=== PATIENT | female | born 1965 | race Caucasian/White ===

== ENCOUNTER 2021-08-16 18:53 | Emergency (ER) | payer MEDICARE ==
--- NOTE | 2021-08-16 19:19 | EDM.PDOC ---
ED HPI GENERAL MEDICAL PROBLEM - General Chief Complaint: General Stated Complaint: FELL INJURING FACE/LEFT SIDE Time Seen by Provider: 08/16/21 19:12 - History of Present Illness INITIAL COMMENTS - FREE TEXT/NARRATIVE: 56-year-old female presents the emergency room for evaluation after a fall that she sustained this morning. Patient got her feet tangled up on the edge of a rug and fell forward hitting her left forehead and face on the ground. She also landed hard on her left wrist and hand. She is not sure how she did it but she has a bruise behind her right arm she has some superficial lacerations associated with this. She denies any loss of consciousness just has not felt right all day today. Patient has myotonic dystrophy. She has had brain surgery in the past. Her only medications are multivitamin and she uses hydrocodone for the pain Left Wrist Pain Score (Numeric/FACES): 6 - Related Data Allergies Allergy/AdvReac Type Severity Reaction Status Date / Time codeine Allergy Nausea and Verified 08/16/21 19:11 Vomiting Home Meds: Home Meds Aspirin [Aspirin EC] 81 mg PO DAILY 08/16/21 [History] Hydrocodone/Acetaminophen [HYDROcodone-Acetaminophen 5-325 MG] 5 mg PO ASDIRECTED PRN 08/16/21 [History] ED ROS GENERAL - Review of Systems Review Of Systems: See Below Constitutional: Reports: No Symptoms HEENT: Reports: No Symptoms, Vision Change (She has chronic lower field vision deficits) Respiratory: Reports: No Symptoms Cardiovascular: Reports: No Symptoms Endocrine: Reports: No Symptoms GI/Abdominal: Reports: No Symptoms : Reports: No Symptoms Musculoskeletal: Reports: No Symptoms Skin: Reports: No Symptoms ED EXAM, GENERAL - Physical Exam Exam: See Below Exam Limited By: No Limitations General Appearance: Alert, No Apparent Distress Eye Exam: Bilateral Eye: Normal Inspection, PERRL Ears: Normal External Exam Ear Exam: Bilateral Ear: Auricle Normal, Canal Normal, TM normal Nose: Normal Inspection, Normal Mucosa, No Blood Throat/Mouth: Normal Inspection, Normal Lips, Normal Oropharynx, Normal Voice, No Airway Compromise Head: Other (Skin bruising and swelling over left forehead and over left eyebrow) Neck: Normal Inspection, Supple, Non-Tender, Full Range of Motion. No: Lymphadenopathy (R), Thyromegaly Respiratory/Chest: No Respiratory Distress, Lungs Clear, Normal Breath Sounds Cardiovascular: Normal Peripheral Pulses, Regular Rate, Rhythm, No Edema GI/Abdominal: Normal Bowel Sounds, Non-Tender, Pelvis Stable Back Exam: Normal Inspection. No: CVA Tenderness (L), CVA Tenderness (R) Extremities: Normal Inspection, Other (Some palpable hand discomfort no specific snuffbox tenderness on the left side). No: Pedal Edema Neurological: Alert, Oriented, CN II-XII Intact, Normal Cognition Skin Exam: Other (Bruising and abrasion over the left eyebrow) Course - Vital Signs Last Recorded V/S: Last Vital Signs Temp 36.8 C 08/16/21 19:09 Pulse 95 08/16/21 19:09 Resp 18 08/16/21 19:09 BP 156/110 H 08/16/21 19:09 Pulse Ox 87 L 08/16/21 19:09 - Orders/Labs/Meds Orders: Active Orders 24 hr Category Date Time Status Vaccine to be Administered/Admin Charge [RC] ASDIRECTED Care 08/16/21 19:35 Active Hand Comp Min 3V Lt [CR] Stat Exams 08/16/21 19:32 Taken Head wo Cont [CT] Stat Exams 08/16/21 19:32 Taken Max Facial Sinus wo Cont [CT] Stat Exams 08/16/21 19:32 Taken Meds: Medications Discontinued Medications Generic Name Dose Route Start Last Admin Trade Name Rudolphq PRN Reason Stop Dose Admin Diphtheria/Tetanus/Acell Pertussis 0.5 ml 08/16/21 19:35 08/16/21 20:04 Diphtheria,Pertussis(Acell),Tetanus Vaccine 0.5 Ml Syringe IM 08/16/21 19:36 0.5 ml .ONCE ONE Administration - Re-Assessments/Exams Free Text/Narrative Re-Assessment/Exam: 08/16/21 20:36 CT of the head and facial bones appears negative for any acute fracture dislocation. I did look at the left hand x-ray no evidence of any fracture dislocation she is got some mild degenerative changes noted. Relayed the information about the x-rays and CTs to the patient she would like to go home now. Departure - Departure Time of Disposition: 20:37 Disposition: Home, Self-Care 01 Clinical Impression: Injury of left facial nerve, Injury of left hand - Discharge Information Referrals: Mara Hook MD [Primary Care Provider] - Forms: ED Department Discharge Additional Instructions: Return to the emergency room with any questions problems or worsening symptoms. Tylenol as needed for discomfort. You may also use your hydrocodone. Follow-up with your regular healthcare provider in 1 week if needed. Sepsis Event Note (ED) - Evaluation Sepsis Screening Result: No Definite Risk - Focused Exam Vital Signs: Vital Signs Temp Pulse Resp BP Pulse Ox 08/16/21 19:09 36.8 C 95 18 156/110 H 87 L - My Orders Last 24 Hours: My Active Orders 08/16/21 19:32 Hand Comp Min 3V Lt [CR] Stat Head wo Cont [CT] Stat Max Facial Sinus wo Cont [CT] Stat 08/16/21 19:35 Vaccine to be Administered/Admin Charge [RC] ASDIRECTED - Assessment/Plan Last 24 Hours: My Active Orders 08/16/21 19:32 Hand Comp Min 3V Lt [CR] Stat Head wo Cont [CT] Stat Max Facial Sinus wo Cont [CT] Stat 08/16/21 19:35 Vaccine to be Administered/Admin Charge [RC] ASDIRECTED
[2021-08-16] MEDS ORDERED: Diphtheria,Pertussis(Acell),Tetanus Vaccine 0.5 ML Syringe IM ONE (19:35)
--- NOTE | 2021-08-17 06:55 | CR ---
Left hand: 4 views of the left hand were obtained. Comparison: No prior hand study is available. Mild scattered joint space narrowing within the MCP, DIP and PIP joints is noted. Bony structures show no acute fracture, dislocation or other bony abnormality is seen. Impression: 1. Mild degenerative change. 2. No definite acute osseous abnormality is appreciated. Diagnostic code #2
--- NOTE | 2021-08-17 08:27 | CT ---
Head CT Technique: Multiple axial sections through the brain were obtained. Intravenous contrast was not utilized. Reconstructed coronal and sagittal images were obtained. Comparison: No prior intracranial imaging is available. Findings: Ventricles along with basal cisterns and sulci over the convexities are within normal limits for the patient's age. Mild areas of diminished density are noted within the periventricular white matter which most likely represent small vessel ischemic demyelination change. Focal atrophy is seen within the right occipital lobe. No other abnormal parenchymal densities are seen. No evidence of intracranial hemorrhage is seen. No midline shift or mass-effect is appreciated. Bone window settings were reviewed. Visualized mastoid sinuses are clear. Mild mucosal thickening is seen within the right ethmoid sinus. Opacification is noted of the left sphenoid sinus. No acute calvarial abnormality is seen. Prior craniotomy is noted within the right posterior skull. Impression: 1. 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 Please correlate if this represents old injury or old infarct. 2. Mild senescent change as noted above. 3. Sinus findings which are most likely chronic. 4. No acute intracranial abnormality is appreciated. Diagnostic code #2 I agree with preliminary report from [facility], finalized on 08/16/21, 9:20 PM CDT, code 1
--- NOTE | 2021-08-17 08:30 | CT ---
CT paranasal sinuses Technique: Multiple axial sections through the paranasal sinuses were obtained. Reconstructed coronal and sagittal images were obtained. Comparison: No prior paranasal sinus study is available, study is correlated with head CT exam performed in the same day (7:38 PM). Findings: Mild mucosal thickening is seen within the right ethmoid sinus posteriorly. Opacification is seen within the left sphenoid sinus. Right and left globes are symmetric. No retrobulbar abnormality is seen. Mild soft tissue swelling is noted to the lateral left orbit. No acute fracture is appreciated. Impression: 1. Sinus findings most likely chronic. 2. Slight soft tissue swelling is noted lateral to the left globe. 3. No acute fracture is seen. Diagnostic code #2 I agree with preliminary report from [facility], finalized on 08/16/21, 9:20 PM CDT, code 1
== END 2021-08-16 20:48 | disposition home or self-care (01) ==
LOC: JD.ED 18:53
DX: S00.12XA Contusion of left eyelid and periocular area, initial encounter (principal); S69.92XA Unspecified injury of left wrist, hand and finger(s), initial encounter; Z88.5 Allergy status to narcotic agent; Z79.82 Long term (current) use of aspirin; Z23 Encounter for immunization; W18.09XA Striking against other object with subsequent fall, initial encounter
CPT/HCPCS: 70450; 70450-26; 70486; 70486-26; 73130-26-LT; 73130-LT; 90471; 90715; 99284-25